=== PATIENT | male | born 1940 | race Caucasian/White ===

== ENCOUNTER 2018-03-11 14:44 | Emergency (ER) | payer MEDICARE, OTHER ==
[~2018-03-11] VITALS: Ht 180.3 cm; Wt 85.3 kg
--- OUTSIDE RECORDS SUMMARY | ~2018-03-11 | XMS | Clinical Summary ---
Demographics + + + | Address | [address] | | | [place] [address] | + + + | Home Phone | | + + + | Preferred Language | Unknown | + + + | Marital Status | Single | + + + | Restoration Affiliation | 1076 | + + + | Race | Unknown | + + + | Ethnic Group | Unknown | + + + Author + + + | Author | [facility] | + + + | Organization | [facility] | + + + | Address | Unknown | + + + | Phone | Unavailable | + + + Support + + +---------+ + | Name | Relationship | Address | Phone | + + +---------+ + | Mariposa Sol | ECON | Unknown | | + + +---------+ + Care Team Providers + +------+ + | Care Operator Specialist Communications Name | Role | Phone | + +------+ + PP | Unavailable | + +------+ + Allergies Not on File Current Medications Not on file Active Problems Not on file Social History + +-------+ +--------+------+ | Tobacco [...] on file | | + + + Plan of Treatment Not on file Results Not on filefrom Last 3 Months Insurance + +--------+ +------+-------+ + | Payer | Benefi | Subscriber | Type | Phone | Address | | | t Plan | ID | | | | | | / | | | | | | | Group | | | | | + +--------+ +------+-------+ + | MEDICARE | MEDICA | [id number] | | | [address] | | | RE | | | | [place] [address] | | | IP-OP | | | | | + +--------+ +------+-------+ + + +--------+ +--------+ + + | Guarantor Name | Accoun | Relation to | Date | Phone | Billing Address | | | t Type | Patient | of | | | | | | | | | | + +--------+ +--------+ + + | SHAHNAZ WERNER | Person | Self [birth year] | Home: | [address] | | | al/Fam | | 1941 | [phone] | [place] [address] | | | [address]zaida | | | [address] | | + +--------+ +--------+ + +"
--- OUTSIDE RECORDS SUMMARY | ~2018-03-11 | XMS | Clinical Summary ---
Demographics + + + | Address | [address] | | | [place] [address] | + + + | Home Phone | | + + + | Preferred Language | Unknown | + + + | Marital Status | Single | + + + | Orthodox Affiliation | 1076 | + + + | Race | Unknown | + + + | Ethnic Group | Unknown | + + + Author + + + | Author | [facility] | + + + | Organization | [facility] | + + + | Address | Unknown | + + + | Phone | Unavailable | + + + Support + + +---------+ + | Name | Relationship | Address | Phone | + + +---------+ + | Mariposa Sol | ECON | Unknown | | + + +---------+ + Care Team Providers + +------+ + | Care Thread Laster Name | Role | Phone | + [...] +------+-------+ + | MEDICARE | MEDICA | [id number] | | | [address] | | | RE | | | | [place] [address] | | | IP-OP | | | [...] | | al/Fam | | 1941 | [phone] | [place] [address] | | | [address] | | | [address] | | + +--------+ +--------+ + +"
[~2018-03-11 14:44] MED LIST: ALLOPURINOL300 MG PO; AMLODIPINE BESYL5 MG PO; ASPIRIN EC325 MG PO; CLONIDINE HCL0.1 MG PO; INDOMETHACIN25 MG PO; INDOMETHACIN50 MG PO; LANTUS100 UNITS/ SUB-Q; LISINOPRIL10 MG; LISINOPRIL40 MG PO; METOPROLOL SUCC25 MG PO; METOPROLOL TAR100 MG PO; METOPROLOL TART50 MG PO; NORCO 5-325 TA1 EACH PO; NOVOLOG100 UNITS/ SUB-Q; OMEPRAZOLE20 MG PO; ONDANSETRON ODT8 MG PO; OXYCODONE HCL5 M1 PO; PERCOCET 5-3251 EACH PO; VIAGRA100 MG PO; VITAMIN D-32000 UNIT PO; ZOFRAN8 MG PO
== END 2018-03-11 18:00 | disposition home or self-care (01) ==
LOC: ED 14:44
DX: R04.0 Epistaxis (principal); I10 Essential (primary) hypertension; E11.40 Type 2 diabetes mellitus with diabetic neuropathy, unspecified; E78.5 Hyperlipidemia, unspecified; Z86.73 Personal history of transient ischemic attack (TIA), and cerebral infarction without residual deficits; Z88.0 Allergy status to penicillin; Z88.7 Allergy status to serum and vaccine; Z88.5 Allergy status to narcotic agent; Z88.8 Allergy status to other drugs, medicaments and biological substances; Z79.899 Other long term (current) drug therapy; Z79.82 Long term (current) use of aspirin; Z79.4 Long term (current) use of insulin
CPT/HCPCS: 99283

== ENCOUNTER 2018-03-13 00:38 | Emergency (ER) | payer MEDICARE, OTHER ==
[~2018-03-13] VITALS: Ht 180.3 cm; Wt 85.3 kg
--- OUTSIDE RECORDS SUMMARY | ~2018-03-13 | XMS | Clinical Summary ---
Demographics + + + | Address | [address] | | | [place] [address] | + + + | Home Phone | | + + + | Preferred Language | Unknown | + + + | Marital Status | Single | + + + | Temple Affiliation | 1076 | + + + | Race | Unknown | + + + | Ethnic Group | Unknown | + + + Author + + + | Author | [facility] | + + + | Organization | [facility] | + + + | Address | Unknown | + + + | Phone | Unavailable | + + + Support + + +---------+ + | Name | Relationship | Address | Phone | + + +---------+ + | Mariposa Sol | ECON | Unknown | | + + +---------+ + Care Team Providers + +------+ + | Care Peoplesoft Financials Consultant Name | Role | Phone | + [...] +------+-------+ + | MEDICARE | MEDICA | [id number] | | | [address] | | | RE | | | | [place] [address] | | | IP-OP | | | [...] | | al/Fam | | 1941 | [phone] | [place] [address] | | | [address] | | | [address] | | + +--------+ +--------+ + +"
--- OUTSIDE RECORDS SUMMARY | ~2018-03-13 | XMS | Clinical Summary ---
Demographics + + + | Address | [address] | | | [place] [address] | + + + | Home Phone | | + + + | Preferred Language | Unknown | + + + | Marital Status | Single | + + + | Gnosticism Affiliation | 1076 | + + + | Race | Unknown | + + + | Ethnic Group | Unknown | + + + Author + + + | Author | [facility] | + + + | Organization | [facility] | + + + | Address | Unknown | + + + | Phone | Unavailable | + + + Support + + +---------+ + | Name | Relationship | Address | Phone | + + +---------+ + | Mariposa Sol | ECON | Unknown | | + + +---------+ + Care Team Providers + +------+ + | Care Hay Buckler Name | Role | Phone | + [...] +------+-------+ + | MEDICARE | MEDICA | [id number] | | | [address] | | | RE | | | | [place] [address] | | | IP-OP | | | [...] | | al/Fam | | 1941 | [phone] | [place] [address] | | | [place] | | | [address] | | + +--------+ +--------+ + +"
--- OUTSIDE RECORDS SUMMARY | 2018-03-13 00:44 | XMS ---
PreManage Notification: SHAHNAZ KEVIN Security Tobacco Conditioner Events No recent Security Events currently on file CRITERIA MET - [facility] - 2 Visits in 30 Days CARE PROVIDERS Black Rosario MD Primary Care Current PHONE: Unknown orleticia Case or Mill [employer] Current PHONE: Unknown [facility] Other [facility] PHONE: Unknown Flako has no Care Guidelines for this patient. E.D. VISIT COUNT (12 MO.) 2 [facility] TOTAL 2 NOTE: Visits indicate total known visits. ED/UCC VISIT TRACKING (12 MO.) 03/13/2018 00:39 [facility] [place] TYPE: Emergency COMPLAINT: - NOSE BLEED 03/11/2018 14:44 [facility] [place] TYPE: Emergency COMPLAINT: - NOSE BLEED INPATIENT VISIT TRACKING (12 MO.) No inpatient visits to display in this time frame [id number]
[2018-03-13] MEDS ORDERED: KEFLEX500 MG PO (03:57)
== END 2018-03-13 04:46 | disposition home or self-care (01) ==
LOC: ED 00:38
PROC: 2Y41X5Z Packing of Nasal Region using Packing Material (ICD-10-PCS; principal; 2018-03-13)
DX: R04.0 Epistaxis (principal); E11.42 Type 2 diabetes mellitus with diabetic polyneuropathy; E78.5 Hyperlipidemia, unspecified; I10 Essential (primary) hypertension; Z88.0 Allergy status to penicillin; Z88.7 Allergy status to serum and vaccine; Z88.5 Allergy status to narcotic agent; Z88.8 Allergy status to other drugs, medicaments and biological substances; Z79.899 Other long term (current) drug therapy; Z79.82 Long term (current) use of aspirin; Z79.4 Long term (current) use of insulin
CPT/HCPCS: 30903; 99283

== ENCOUNTER 2018-03-14 05:32 | Emergency (ER) | payer MEDICARE, OTHER ==
[~2018-03-14] VITALS: Ht 180.3 cm; Wt 85.3 kg
--- OUTSIDE RECORDS SUMMARY | ~2018-03-14 | XMS | Clinical Summary ---
Demographics + + + | Address | [address] | | | [place] [address] | + + + | Home Phone | | + + + | Preferred Language | Unknown | + + + | Marital Status | Single | + + + | Yazidi Affiliation | 1076 | + + + | Race | Unknown | + + + | Ethnic Group | Unknown | + + + Author + + + | Author | [facility] | + + + | Organization | [facility] | + + + | Address | Unknown | + + + | Phone | Unavailable | + + + Support + + +---------+ + | Name | Relationship | Address | Phone | + + +---------+ + | Mariposa Sol | ECON | Unknown | | + + +---------+ + Care Team Providers + +------+ + | Care Forensic Specialist Name | Role | Phone | + [...] +------+-------+ + | MEDICARE | MEDICA | [id number] | | | [address] | | | RE | | | | [place] [address] | | | IP-OP | | | [...] | | al/Fam | | 1941 | [phone] | [place] [address] | | | [address] | | | [address] | | + +--------+ +--------+ + +"
--- OUTSIDE RECORDS SUMMARY | ~2018-03-14 | XMS | Clinical Summary ---
Demographics + + + | Address | [address] | | | [place] [address] | + + + | Home Phone [...] + + + | Author | [facility] | + + + | Organization | [facility] | + + + | Address | Unknown | + + + | Phone | Unavailable | + + + Support + + +---------+ + | Name | Relationship | Address | Phone | + + +---------+ + | Mariposa Sol | ECON | Unknown | | + + +---------+ + Care Team Providers + +------+ + | Care Electronic Tech Name | Role | Phone | + [...] +------+-------+ + | MEDICARE | MEDICA | [id number] | | | [address] | | | RE | | | | [place] [address] | | | IP-OP | | | | | + +--------+ +------+-------+ + + +--------+ +--------+ + + | Guarantor Name | Accoun | Relation to | Date | Phone | Billing Address | | | t Type | Patient | of | | | | | | | | | | + +--------+ +--------+ + + | SHAHANZ WERNER | Person | Self | [birth year] | Home: | [address] | | | al/Fam | | 1941 | [phone] | [place] [address] | | | [address] | | | [address] | | + +--------+ +--------+ + +"
[~2018-03-14 05:32] MED LIST changes: +KEFLEX500 MG PO
--- OUTSIDE RECORDS SUMMARY | 2018-03-14 05:36 | XMS ---
PreManage Notification: SHAHNAZ KEVIN Security Welder Production Line Arc Events No recent Security Events currently on file CRITERIA MET - Group Notification - [facility] - 2 Visits in 30 Days CARE PROVIDERS Black Rosario MD Primary Care Current PHONE: Unknown orleticia Case or Director Embalmer Current PHONE: Unknown [facility] Other [facility] PHONE: Unknown Flako has no Care Guidelines for this patient. Care History Medical/Surgical 03/13/2018 [facility] HAS CALLED PATIENT 3X WITH NO RESPONSE AND NO VOICEMAIL IS SET UP. - PLEASE REFER PATIENT TO [facility] TO ESTABLISH WITH A PROVIDER. - PLEASE HAVE PATIENT CALL [phone] TO HELP SET UP PCP FOR PATIENT. - PATIENT HAS NOT BEEN SEEN IN THE WALK IN CLINIC SINCE 2013. - ALL NON EMERGENT MEDICAL NEEDS, PLEASE REFER TO WALK IN CLINIC. [place] VISIT COUNT (12 MO.) 3 [facility] TOTAL 3 NOTE: Visits indicate total known visits. ED/UCC VISIT TRACKING (12 MO.) 03/14/2018 05:33 [facility] [place] TYPE: Emergency COMPLAINT: - NOSE BLEED 03/13/2018 00:39 [facility] [place] TYPE: Emergency COMPLAINT: - NOSE BLEED 03/11/2018 14:44 [facility] [place] TYPE: Emergency COMPLAINT: - NOSE BLEED INPATIENT VISIT TRACKING (12 MO.) No inpatient visits to display in this time frame [id number]
[2018-03-15] MEDS ORDERED: NORCO 5-325 TA1 EACH PO (03:54)
[2018-03-15] MEDS ORDERED: ATIVAN1 MG PO (04:34)
[2018-03-15] MEDS ORDERED: ZOFRAN ODT4 MG SL (04:34)
[2018-03-15] MEDS ORDERED: FUROSEMIDE20 MG PO (10:43)
[2018-03-15] MEDS ORDERED: OMEPRAZOLE40 MG PO (10:43)
[2018-03-15] MEDS ORDERED: HUMALOG100 UNITS/ SUB-Q (11:17)
== END 2018-03-14 07:48 | disposition home or self-care (01) ==
LOC: ED 05:32
DX: R04.0 Epistaxis (principal); I10 Essential (primary) hypertension; E11.40 Type 2 diabetes mellitus with diabetic neuropathy, unspecified; Z79.4 Long term (current) use of insulin; Z79.899 Other long term (current) drug therapy; Z88.0 Allergy status to penicillin; Z88.7 Allergy status to serum and vaccine; Z88.5 Allergy status to narcotic agent; Z88.8 Allergy status to other drugs, medicaments and biological substances
CPT/HCPCS: 99283

== ENCOUNTER 2018-03-15 03:43 | Observation (INO) | payer MEDICARE, OTHER ==
[~2018-03-15] VITALS: Ht 180.3 cm; Wt 83.0 kg
--- OUTSIDE RECORDS SUMMARY | ~2018-03-15 | XMS | Clinical Summary ---
Demographics + + + | Address | [address] | | | [place] [address] | + + + | Home Phone | | + + + | Preferred Language | Unknown | + + + | Marital Status | Single | + + + | Uatsdin Affiliation | 1076 | + + + | Race | Unknown | + + + | Ethnic Group | Unknown | + + + Author + + + | Author | [facility] | + + + | Organization | [facility] | + + + | Address | Unknown | + + + | Phone | Unavailable | + + + Support + + +---------+ + | Name | Relationship | Address | Phone | + + +---------+ + | Mariposa Sol | ECON | Unknown | | + + +---------+ + Care Team Providers + +------+ + | Care Fisher Name | Role | Phone | + [...] +------+-------+ + | MEDICARE | MEDICA | [id number] | | | [address] | | | RE | | | | [place] [address] | | | IP-OP | | | [...] | | al/Fam | | 1941 | [phone] | [place] [address] | | | [address] | | | [address] | | + +--------+ +--------+ + +"
--- OUTSIDE RECORDS SUMMARY | ~2018-03-15 | XMS | Clinical Summary ---
Demographics + + + | Address | [address] | | | [place] [address] | + + + | Home Phone | | + + + | Preferred Language | Unknown | + + + | Marital Status | Single | + + + | Presybeterian Affiliation | 1076 | + + + | Race | Unknown | + + + | Ethnic Group | Unknown | + + + Author + + + | Author | [facility] | + + + | Organization | [facility] | + + + | Address | Unknown | + + + | Phone | Unavailable | + + + Support + + +---------+ + | Name | Relationship | Address | Phone | + + +---------+ + | Mariposa Sol | ECON | Unknown | | + + +---------+ + Care Team Providers + +------+ + | Care Sand System Operator Name | Role | Phone | [...] +------+-------+ + | MEDICARE | MEDICA | [id number] | | | [address] | | | RE | | | | [place] [address] | | | IP-OP | | | [...] | | al/Fam | | 1941 | [phone] | [place] [address] | | | [address] | | | [address] | | + +--------+ +--------+ + +"
--- OUTSIDE RECORDS SUMMARY | ~2018-03-15 | XMS | Clinical Summary ---
Demographics + + + | Address | [address] | | | [place] [address] | + + + | Home Phone [...] + + + | Author | [facility] | + + + | Organization | [facility] | + + + | Address | Unknown | + + + | Phone | Unavailable | + + + Support + + +---------+ + | Name | Relationship | Address | Phone | + + +---------+ + | Mariposa Sol | ECON | Unknown | | + + +---------+ + Care Team Providers + +------+ + | Care Cloth Covered Helmet Puller Name | Role | Phone | + [...] +------+-------+ + | MEDICARE | MEDICA | [id number] | | | [address] | | | RE | | | | [place] [address] | | | IP-OP | | | [...] | | al/Fam | | 1941 | [phone] | [place] [address] | | | [address] | | | [address] | | + +--------+ +--------+ + +"
--- OUTSIDE RECORDS SUMMARY | 2018-03-15 03:48 | XMS ---
PreManage Notification: SHAHNAZ KEVIN Security Front Office Administrator Events No recent Security Events currently on file CRITERIA MET - Group Notification - [facility] - 2 Visits in 30 Days CARE PROVIDERS [facility] Other [facility] PHONE: Unknown Flako has no Care Guidelines for this patient. Care History Medical/Surgical 03/14/2018 [facility] - PATIENT REFERRED TO DR BRIGETTE LANCE ON 03/14/18 PER ER PHYSICIAN NOTATION. - PLEASE HAVE PATIENT FOLLOW UP WITH DR BRIGETTE LANCE IF SEEN IN THE ED. 03/13/2018 [facility] HAS CALLED PATIENT 3X WITH NO RESPONSE AND NO VOICEMAIL IS SET UP. - PLEASE REFER PATIENT TO [facility] TO ESTABLISH WITH A PROVIDER. - PLEASE HAVE PATIENT CALL [phone] TO HELP SET UP PCP FOR PATIENT. - PATIENT HAS NOT BEEN SEEN IN THE WALK IN CLINIC SINCE 2013. - ALL NON EMERGENT MEDICAL NEEDS, PLEASE REFER TO WALK IN CLINIC. E.D. VISIT COUNT (12 MO.) 4 [facility] TOTAL 4 NOTE: Visits indicate total known visits. ED/UCC VISIT TRACKING (12 MO.) 03/15/2018 03:44 [facility] [place] TYPE: Emergency COMPLAINT: - NOSE BLEED 03/14/2018 05:33 [facility] [place] TYPE: Emergency COMPLAINT: - NOSE BLEED 03/13/2018 00:39 [facility] [place] TYPE: Emergency COMPLAINT: - NOSE BLEED 03/11/2018 14:44 [facility] [place] TYPE: Emergency COMPLAINT: - NOSE BLEED DIAGNOSES: - Allergy status to narcotic agent status - Allergy status to penicillin - ferry terminal agent (current) use of insulin - Hyperlipidemia, unspecified - Other snf (current) drug therapy - Type 2 diabetes mellitus with diabetic neuropathy, unspecified - Epistaxis - Allergy status to other drugs, medicaments and biological substances status - Personal history of transient ischemic attack (TIA), and cerebral infarction without residual deficits - ferry terminal agent (current) use of aspirin - Essential (primary) hypertension - Allergy status to serum and vaccine status INPATIENT VISIT TRACKING (12 MO.) No inpatient visits to display in this time frame [id number]
[2018-03-15] MEDS ORDERED: NORCO 5-325 TA1 EACH PO (03:54)
[2018-03-15] MEDS ORDERED: ZOFRAN ODT4 MG SL (04:34)
[2018-03-15] MEDS ORDERED: ATIVAN1 MG PO (04:34)
[2018-03-15] MEDS ORDERED: OMEPRAZOLE40 MG PO (10:43)
[2018-03-15] MEDS ORDERED: FUROSEMIDE20 MG PO (10:43)
--- NOTE | 2018-03-15 10:54 | NUR ---
ROUNDED WITH DR LOPEZ. PT IN BED WITH LIANG PACKING IN LEFT NARE. SOME LEAKING FROM DRESSING. NEW ORDERS RECIEVED.
[2018-03-15] MEDS ORDERED: HUMALOG100 UNITS/ SUB-Q (11:17)
--- NOTE | 2018-03-15 12:28 | NUR ---
MED REC COMPLETE WITH TIFFANIE MEDICATION REFILL HISTORY AND PATIENT INTERVIEW.
--- NOTE | 2018-03-15 12:51 | NUR ---
REPORTING PAIN IN UPPER MOUTH. PRN PAIN MEDICATION GIVEN. LEAKING APPEARS TO HAVE STOPPED. CALL LIGHT IN REACH. 100% LUNCH ATE.
--- NOTE | 2018-03-15 14:10 | NUR ---
PATIENT RESTING IN BED. PATIENT COMPLAINS ABOUT PAIN IN MOUTH AND TONGUE. PATIENT RATES HIS PAIN A 4 OUT OF 10. PATIENT ASKS FOR PAIN MEDICINE. RN NOTIFIED. VITALS AND I&O DONE. CALL LIGHT WITHIN REACH. NO OTHER NEEDS AT THIS TIME.
--- NOTE | 2018-03-15 14:38 | NUR ---
PT COMPLAING OF 4/10 PAIN IM MOUTH AND TONGUE. DE NPAIN MEDICATION GIVEN. DENIES FURTHER NEEDS. PACKING IN NARE SECURE.SMALL AMOUNT LEAKING BUT MOSTLY BLEADING UNDER CONTROL.
--- NOTE | 2018-03-15 16:03 | NUR ---
CALL LIGHT ANSWERED. RED BLOOD LEAKING FROM LEFT NARE. GAUZE APPLIED AND PRESSURE HELD FOR 5 MINUTES. BLEEDING STOPED. PT EDUCATED ON NOT COUGHING AND NOT DOING THINGS TO INCREASE PRESSURE IN NOSE. PAIN MEDICATION GIVEN PER ORDER. GOWN AND BLANKETS CHANGED. DENIES FUTHER NEEDS.
--- NOTE | 2018-03-15 17:37 | NUR ---
REPORTING 4/10 PAIN. PRN PAIN MEDICAITION GIVEN.
--- NOTE | 2018-03-15 18:09 | NUR ---
PT ADMITTED TODAY FOR OBSERVATION. 1 EPISODE OF BLEEDING THROUGH PRESSURE DRESSING IN NOSE. FENTYNOL IV FOR PAIN Q1 HR. PLATELETS TO BE GIVEN WHEN READY.
--- NOTE | 2018-03-15 19:51 | NUR ---
TURNED OFF PT'S LIGHTS PER HIS REQUEST. HE NEEDS NOTHING ELSE AT THIS TIME.
--- NOTE | 2018-03-15 20:00 | NUR ---
FINISHED GETTING EVENING REPORT AND INTRODUCED MYSELF TO PATIENT. AWAITING FOR PLATELETS TO ARRIVE FROM [facility] FOR TRANSFUSION. PATIENT AWAITING PATIENTLY.
--- NOTE | 2018-03-15 21:40 | NUR ---
VITALS AND I&OS DONE AND CHARTED. URINAL EMPTIED. NOTIFIED RN LEAH OF HIGH PULSE. PT NEEDS NOTHING ELSE AT THIS TIME.
--- NOTE | 2018-03-15 22:45 | NUR ---
PRE-TRANSFUSION START VITALS 2200. PLATELETS STARTED TRANSFUSING AT 2215. 2230 VS ESSENTIALLY THE SAME AND TRANSFUSION FINISHED AT 2245 AND VS STILL ESSENTIALLY THE SAME. NO TRANSFUSION REATION NOTED.
--- NOTE | 2018-03-15 23:45 | NUR ---
VS REMAIN STABLE AND PATIENT RESTING QUIETLY ON HIS 3L/OXY MASK.
--- NOTE | 2018-03-16 02:43 | NUR ---
PATIENT STILL DOING WELL. VS STABLE AND PATIENT WAS ABLE TO GET SOME SLEEP WITH 1MG IV ATIVAN AND 25MCG FENTANYL.
--- NOTE | 2018-03-16 04:38 | NUR ---
PATIENT STILL RESTING QUIETLY ON 3L/OXYMASK. RESPIRATIONS REGULAR AND EVEN. EYES CLOSED.
--- NOTE | 2018-03-16 06:28 | NUR ---
AFTER PATIENT RECEIVED HIS PLATELETS AND ATIVAN AND FENTANYL HE SEEMED TO SLEEP PRETTY WELL THE REST OF THE NIGHT. PATIENT STILL CONTINUES TO REST QUIETLY, EYES CLOSED, LIANG IN PLACE IN LEFT NARE, AND ON 3L/OXYMASK.
--- NOTE | 2018-03-16 07:20 | NUR ---
REPORT RECEIVED FROM MIRYAM LYNN. PT AWAKE AND SITTING UPRIGHT IN BED WITHFOLEY IN NARE. SMALL AMT OF BLOODY DRAINAGE LEAKING OUT OF NARE. PT DOES NOT FEEL IT IS GOING DOWN HIS THROAT. DID NOT GET MUCH SLEEP BUT FEELS HE WAS ABLE TO GET SOME AFTER PAIN MEDS LAST NIGHT.
--- NOTE | 2018-03-16 08:25 | NUR ---
patient in bed, blood sugar taken by REYNOLD Mondragon, breakfast brought in
--- NOTE | 2018-03-16 09:11 | NUR ---
PT GIVEN PAIN MEDS AND ATIVAN FOR ANXIETY AND PAIN 4\10 MOSTLY IN THROAT. PT NOSE SEEMS TO HAVE STOPPED OOZING AND IS CRUSTY AROUND NARE. DENIES FEELING IT DOWN HIS THROAT. LUNGS CLEAR.
--- NOTE | 2018-03-16 12:56 | NUR ---
GAVE PT POPSICLE FOR SORE THROAT. NOSE STILL CRUSTED ON DISTAL EDGE, NO LEAKING NOTED.
--- NOTE | 2018-03-16 16:44 | NUR ---
PT APPEARS TO BE RESTING COMFORTABLY WITH EYES CLOSED.
--- NOTE | 2018-03-16 18:03 | NUR ---
PT SLEPT OFF AND ON THROUGHOUT DAY. PT RATES PAIN IN HEAD AND THROAT MOSTLY 4/10. GIVEN IV FENTYL AND PO ATIVAN X2. INSULIN GIVEN X1. FULL LIQ DIET. BEDREST, USES URINAL. PLAN TO LEAVE LIANG IN NARE FOR ANOTHER COUPLE DAYS. 1 UNIT PLATELETS GIVEN YESTERDAY.
--- NOTE | 2018-03-16 18:10 | NUR ---
pt is resting in bed safely with call light in reach. pt did not need anything at the moment
--- NOTE | 2018-03-16 20:00 | NUR ---
PATIENT RESTING QUIETLY IN BED ON HIS LEFT SIDE. 3L/OXYMASK ON AND LIANG STILL INFLATED AND PLACED IN THE LEFT NARE. PATIENT'S EYES CLOSED, RESPIRATIONS REGULAR AND EVEN. PATIENT MOUTH BREATHING AND RESPIRATIONS 16-18 A MINUTE. I WILL NOT AWAKEN HIM AT THIS TIME.
--- NOTE | 2018-03-16 22:00 | NUR ---
PATIENT HAS A MAGALLANES 5 AND HAS HAD 25MCG FENTANYL AND 1 MG OF ATIVAN AND IS STARTING TO FEEL BETTER. PM ASSESSMENT DONE. LUNGS CLEAR AND BOWEL TONES ACTIVE. ALL PM MEDS GIVEN. PATIENT READY TO GO TO SLEEP.
--- NOTE | 2018-03-16 22:41 | NUR ---
charge nurse rounding note: resting, eyes closed, pt pulled iv earlier, unable to restart iv placment. Primary RN notified Dr Donato, new orders received. call light and fluids at bedside, no request
--- NOTE | 2018-03-17 00:10 | NUR ---
PATIENT CONTINUES TO REST QUIETLY ON HIS LEFT SIDE. EYES CLOSED, RESPIRATIONS ARE REGULAR AND EVEN.
--- NOTE | 2018-03-17 02:00 | NUR ---
PATIENT RESTING QUIETLY STILL, RESPIRATIONS EVEN AND REGULAR, EYES CLOSED.
--- NOTE | 2018-03-17 04:08 | NUR ---
PATIENT BACK ASLEEP AFTER GETTING ANOTHER 25MCG OF IV FENTANYL FOR MAGALLANES OF 11/25. RESPIRATIONS EVEN AND REGULAR.
--- NOTE | 2018-03-17 06:33 | NUR ---
PATIENT HAD GOOD A NIGHT i THINK HE COULD HAVE. NO MORE BL;EEDDING FROM THE LEFT NARE WITH THE LIANG CATH STILL INFLATED IN IT. 1 MG OF ATIVAN AND 25MCG OF FENTANYL HELPED HIM SLEP THE FIRST PART OF THE NIGHT, BUT HE NEEDED ANOTHER DOSE OF FENTANYL TOWARDS MORNINNG FROM THE PRESSURE AND DISCOMFORT OF 6/10 IN HIS NARE AND HEAD CAUSED BY THE LIANG. BEEN SLEEPING WITH 3L/OXY MASK AND SATS ARE FINE ARE HIS OTHER VS AND HE HAS BEEN ABLE TO USE THE URINAL WELL.
--- NOTE | 2018-03-17 07:45 | NUR ---
anniet was asleep, i was able to wake him up i got his blood sugar, reported to the nurse, he is currently eating his breakfast
--- NOTE | 2018-03-17 08:42 | NUR ---
PT IN BED ASLEEP UPON ENTERING ROOM. AWOKE EASILY TO VOICE. LIANG CATH NOTED IN PLACE IN LEFT NARE. SOME OLD DRIED BLOOD NOTED, BUT NO NEW BLEEDING. PT REPORTING 6/10 PAIN OF HEAD AND THROAT. MEDICATED WITH IV FENATNYL. PT ATE 100% OF FULL LIQUID BREAKFAST, TOPHER WELL. PT USING URINAL TO VOID. ALERT AND ORIENTED. ASSESSMENT COMPLETED. CALL LIGHT WITHIN REACH.
--- NOTE | 2018-03-17 12:35 | NUR ---
PT ASLEEP UPON ENTERING ROOM. AWOKE EASILY TO VOICE. PT ATE 100% OF LUNCH, TOPHER WELL. DENIES NEEDS OR CONCERNS AT THIS TIME. NO NEW DRAINAGE NOTED FROM NASAL CATH. CALL LIGHT WITHIN REACH.
--- NOTE | 2018-03-17 14:30 | NUR ---
PT COMPLAINED OF 6/10 CHEST PAIN WITHOUT PRESSURE. VS BP 126/59, HR 64, RESP 16, TEMP 99 ORALLY, O2 SAT 98% ON 3L OXY MASK. NOTIFIED DR. LOPEZ. Dylon.T. CALLED AND EKG COMPLETED. PT DENIES SOB OR OTHER CONCERNS.
--- NOTE | 2018-03-17 14:39 | NUR ---
pateint was in bed, complained of chest pain, alerted nurse and ekg was done, took vital signs
--- NOTE | 2018-03-17 16:36 | NUR ---
PT REPORTS THAT CHEST PAIN IS RESOLVED AT THIS TIME.
--- NOTE | 2018-03-17 18:20 | NUR ---
PT ATE 100% OF DINNER. RESTING IN BED WATCHING TV. DENIES NEEDS OR CONCERNS AT THIS TIME. CALL LIGHT WITHIN REACH.
--- NOTE | 2018-03-17 19:05 | NUR ---
BEDSIDE REPORT RECEIVED FROM OFFGOING RN. PT RESTING IN BED WITH EYES CLOSED, CALL LIGHT WITHIN REACH.
--- NOTE | 2018-03-17 20:39 | NUR ---
PT ASSESSMENT COMPLETE. PT RATING PAIN TO HEAD AND THROAT /10. PRN FENTANYL ADMINISTERED. PT DENIES NAUSEA AND SOB AT THIS TIME. OXY MASK IN PLACE, O2 @ 3LPM, SAO2 97%. LUNG SOUNDS CLEAR AT THIS TIME. LIANG CATH TO L NARES IN PLACE. SLIGHT AMOUNT OF RED DRAINAGE PRESENT. SCRATCHES PRESENT TO BILATERAL ANKLES. PT STATES HE IS NOT SURE HOW THEY GOT THERE. PT DENIES FURTHER NEEDS AT THIS TIME. URINAL EMPTIED AND RETURNED TO BED SIDE. CALL LIGHT WITHIN PT REACH ARE PERSONAL ITEMS.
--- NOTE | 2018-03-17 21:30 | NUR ---
PT CONTINUES TO RATE PAIN 6/10. PRN FENTANYL ADMINISTERED. PT DENIES OTHER NEEDS AT THIS TIME. CALL LIGHT WITHIN REACH.
--- NOTE | 2018-03-18 00:47 | NUR ---
PT UTILIZIES CALL LIGHT, CONTINUES TO REPORT 6/10 PAIN TO HEAD AND THROAT. PRN ATIVAN AND FENTANYL ADMINISTERED. PT DENIES FURTHER NEEDS, CALL LIGHT AND PERSON ITEMS WITHIN REACH.
--- NOTE | 2018-03-18 01:29 | NUR ---
PT RESTING IN BED WITH EYES OPEN. HE STATES THAT PAIN CONTINUES, HAS NOT BEEN ABLE TO FALL ASLEEP YET. PT DENIES NEEDS AT THIS TIME. CALL LIGHT WITHIN REACH.
--- NOTE | 2018-03-18 02:02 | NUR ---
PT ASSESSMENT COMPLETE. PT LYING IN BED AWAKE. PT REPORTS THAT PAIN IS UNRESOLVED AT THIS TIME. LIANG CATH TO L NARE REMAINS IN PLACE. OXY MASK PRESENT, O2 @ 3LPM. PT DENIES NEEDS AT THIS TIME. CHLORASEPTIC SPRAY AT BEDSIDE. CALL LIGHT AND PERSONAL ITEMS WITHIN REACH.
--- NOTE | 2018-03-18 04:30 | NUR ---
PT RESTING IN BED ON HIS L SIDE. RESPIRATIONS EVEN AND UNLABORED. NO S/SX OF DISTRESS NOTED. PT APPEARS TO BE SLEEPING. PT DOES NOT WAKE WHILE STAPLE SHEAR OPERATOR IN ROOM. CALL LIGHT WITHIN REACH.
--- NOTE | 2018-03-18 05:20 | NUR ---
PT AWAKE HALF OF NIGHT. FENTANYL X 3, LORAZEPAM X 1. LIANG CATH TO L NARE, SLIGHT AMOUNT OF SANGUINEOUS DRAINAGE WHEN PT WIPES HIS NOSE. BROWN CRUSTY SCAB AROUND L NARE. PT REPORTS HEADACHE AND SORE THROAT. CHLORASEPTIC SPRAY AT PT'S BEDSIDE. OXYMASK, O2@ 3LPM. IV SL. URINAL AT BEDSIDE, UO QS. SBA. DR. LAGUNAS CALLED 03/17/2018, REQUESTS SUPPLIES AT BEDSIDE, PRESENT.
--- NOTE | 2018-03-18 08:45 | NUR ---
DR LAGUNAS IN TO SEE PT AND PACKING REMOVED FROM L NARE, NO FURTHER BLEEDING NOTED. INSTRUCTED TO KEEP COTTONBALL WITH BACITRACIN IN NARE FOR ANOTHER 24HRS. PT REQUESTING PAIN MEDICATION. FENTANYL 25MCG GIVEN. HOB UP 45DEG. CALL LIGHT IN EASY REACH.
[2018-03-18] MEDS ORDERED: NORCO 5-325 TA1 EACH PO (09:07)
--- NOTE | 2018-03-18 09:07 | NUR ---
PT STATES HE IS COMFORTABLE, NO BLEEDING. DR WATERS IN TO SEE PT.
--- NOTE | 2018-03-18 10:30 | NUR ---
PT IS AWAKE, ASSISTED WITH GETTING UP AND GETTING DRESSED. DENIES BEING DIZZY. TAKING FLUIDS WELL. STATES MAGALLANES IS MUCH IMPROVED SINCE PACKING REMOVED EARLIER. KEEPING COTTONBALL IN L NARE INSTRUCTED.NO BLEEDING. WATCHING TV.
--- NOTE | 2018-03-18 10:58 | NUR ---
PATIENT ALL DRESSED AND READY TO GO. RN IN ROOM. CALL LIGHT IN REACH. NO FURTHER NEEDS AT THIS TIME.
--- NOTE | 2018-03-18 18:23 | EKG ---
[facility] [address] [facility] [place], [place] [address] Signed Sinus rhythm with 1st degree AV block Otherwise normal ECG Confirmed by ROSHAN LOPEZ MD ([id number]) on 03/18/2018 6:23:50 PM Electronically Signed By: ROSHAN LOPEZ MD 03/18/18 1823 PATIENT NAME: SHAHNAZ KEVIN Electrocardiogram DATE OF : 40 PHYSICIAN: ROSHAN LOPEZ MD REPORT #: [id number] REPORT IS CONFIDENTIAL AND NOT TO BE RELEASED WITHOUT AUTHORIZATION
== END 2018-03-18 11:30 | disposition home or self-care (01) ==
LOC: ED 03:43 → MS 03:45
PROVIDERS: ADMIT Internal Medicine
DX: R04.0 Epistaxis (principal); D69.1 Qualitative platelet defects; R07.9 Chest pain, unspecified; E78.5 Hyperlipidemia, unspecified; E11.42 Type 2 diabetes mellitus with diabetic polyneuropathy; N40.0 Benign prostatic hyperplasia without lower urinary tract symptoms; I10 Essential (primary) hypertension; M10.9 Gout, unspecified; N52.9 Male erectile dysfunction, unspecified; R09.89 Other specified symptoms and signs involving the circulatory and respiratory systems; Z87.19 Personal history of other diseases of the digestive system; Z23 Encounter for immunization; Z85.828 Personal history of other malignant neoplasm of skin; Z86.73 Personal history of transient ischemic attack (TIA), and cerebral infarction without residual deficits; Z79.82 Long term (current) use of aspirin; Z79.4 Long term (current) use of insulin; Z79.891 Long term (current) use of opiate analgesic; Z79.899 Other long term (current) drug therapy; Z88.5 Allergy status to narcotic agent; Z88.0 Allergy status to penicillin; Z88.7 Allergy status to serum and vaccine; Z88.8 Allergy status to other drugs, medicaments and biological substances
CPT/HCPCS: 36415; 36430; 80048; 80053; 85025; 85610; 85730; 86850; 86900; 86901; 93005; 93010; 96374; 96375; 96376; 99284; G0008; G0378; J1815; J2405; J3010; J7030; P9035

== ENCOUNTER 2019-05-02 01:46 | Emergency (ER) | payer MEDICARE, OTHER ==
[~2019-05-02] VITALS: Ht 180.3 cm; Wt 83.0 kg
--- OUTSIDE RECORDS SUMMARY | ~2019-05-02 | XMS | Clinical Summary ---
Demographics + + + | Address | [address] | | | [place] [address] | + + + | Home Phone | | + + + | Preferred Language | Unknown | + + + | Marital Status | Single | + + + | Caodaism Affiliation | 1076 | + + + | Race | Unknown | + + + | Ethnic Group | Unknown | + + + Author + + + | Author | [facility] | | | and [place] | + + + | Organization | [facility] | | | and [place] [...] Team Providers + +------+ + | Care Bicycle Repair Technician Name | Role | Phone | + [...]
--- OUTSIDE RECORDS SUMMARY | ~2019-05-02 | XMS | Clinical Summary ---
Demographics + + + | Address | [address] | | | [place] [address] | + + + | Home Phone | | + + + | Preferred Language | Unknown | + + + | Marital Status | Single | + + + | Voodoo Affiliation | 1076 | + + + | Race | Unknown | + + + | Ethnic Group | Unknown | + + + Author + + + | Author | [facility] (Historical as of | | | 02-01-19) | + + + | Organization | [facility] (Historical as of | | | 02-01-19) [...] Team Providers + +------+ + | Care Griddle Cook Name | Role | Phone | + [...] +------+-------+ + | MEDICARE | MEDICA | [id number] | | | [address] | | | RE | | | | [place] [address] | | | IP-OP | | | [...] | 1941 | [phone] | [place] [address] | | | [place] | | | [address]100 | | + +--------+ +--------+ + +"
--- OUTSIDE RECORDS SUMMARY | ~2019-05-02 | XMS | Encounter Summary ---
Demographics + + + | Address | [address] | | | [place] [address] | + + + | Home Phone | | + + + | Preferred Language | Unknown | + + + | Marital Status | Single | + + + | Synagogue Affiliation | 1076 | + + + | Race | Unknown | + + + | Ethnic Group | Unknown | + + + Author + + + | Author | [facility] | | | and [place] | + + + | Organization | [facility] | | | and [place] [...] Team Providers + +------+ + | Care Taxicab Coordinator Name | Role | Phone | + +------+ + PCP | Unavailable | + +------+ + Encounter Details +--------+ + + + + | Date | Type | Department | Care Team | Description | +--------+ + + + + | 08/05/ | Hospital | [facility] | Dung Borjas | ABNORM | | 2001 | Encounter | [facility] [place] | [address] | ELECTROCARDIOGRAM | | | | CLINICAL DECISION | [place] | | | | | [address] | [place] [address] | | | | | [place], [place] | [phone] | | | | | [address] | | | | | | [phone] | | | +--------+ + + + [...]
[~2019-05-02 01:46] MED LIST changes: +ATIVAN1 MG PO; +FUROSEMIDE20 MG PO; +HUMALOG100 UNITS/ SUB-Q; +OMEPRAZOLE40 MG PO; +ZOFRAN ODT4 MG SL
--- OUTSIDE RECORDS SUMMARY | 2019-05-02 01:48 | XMS ---
PreManage Notification: SHAHNAZ KEVIN Security Pile Driver Events No recent Security Events currently on file CRITERIA MET - [facility] - Has Care Guidelines CARE PROVIDERS NOE MOY Family Medicine 05/10/2018-Current PHONE: [phone] [facility] PHONE: Unknown Flako has no Care Guidelines for this patient. Care History Medical/Surgical 05/10/2018 [facility] - Patient is currently established with [facility]. If patient is seen in the ED during business hours. Please contact CHWs at [facility]. Care Recommendation: This patient has had 5 or more Emergency Department visits in the last 12 months.\T\nbsp; Patient requires education on the scope and purpose of the ED as an acute care provider not a Primary Care Provider and should not be utilized for chronic conditions.\T\nbsp; These are guidelines and the provider should exercise clinical judgment when providing care. 03/14/2018 [facility] - PATIENT REFERRED TO DR BRIGETTE LANCE ON 03/14/18 PER ER PHYSICIAN NOTATION. - PLEASE HAVE PATIENT FOLLOW UP WITH DR BRIGETTE LANCE IF SEEN IN THE ED. 03/13/2018 [facility] - W HAS CALLED PATIENT 3X WITH NO RESPONSE AND NO VOICEMAIL IS SET UP. - PLEASE REFER PATIENT TO [facility] TO ESTABLISH WITH A PROVIDER. - PLEASE HAVE PATIENT CALL [phone] TO HELP SET UP PCP FOR PATIENT. - PATIENT HAS NOT BEEN SEEN IN THE WALK IN CLINIC SINCE 2013. - ALL NON EMERGENT MEDICAL NEEDS, PLEASE REFER TO WALK IN CLINIC. E.D. VISIT COUNT (12 [address] [facility] NOTE: Visits indicate total known visits. ED/UCC VISIT TRACKING (12 MO.) 05/02/2019 01:47 [facility] [place] TYPE: Emergency COMPLAINT: - NOSE BLEED 05/09/2018 04:14 [facility] [place] TYPE: Emergency COMPLAINT: - BLOOD PRESSURE PROBLEM DIAGNOSES: - Allergy status to oth drug/meds/biol subst status - Palpitations - 1 Type 2 diabetes mellitus without complications - Allergy status to narcotic agent status - watermelon inspector (current) use of insulin - Allergy status to serum and vaccine status - Other fci (current) drug therapy - Allergy status to penicillin - Essential (primary) hypertension INPATIENT VISIT TRACKING (12 MO.) No inpatient visits to display in this time frame [email or web address]
[2019-05-02] MEDS ORDERED: ALLOPURINOL300 MG PO (02:00)
[2019-05-02] MEDS ORDERED: NORVASC10 MG PO (02:01)
[2019-05-02] MEDS ORDERED: VITAMIN D2000 UNIT PO (02:03)
[2019-05-02] MEDS ORDERED: LANTUS100 UNITS/ SUB-Q ×2 (02:03→02:04)
[2019-05-02] MEDS ORDERED: ASPIR-LOW81 MG PO (02:03)
== END 2019-05-02 03:26 | disposition home or self-care (01) ==
LOC: ED 01:46
PROC: 093K7ZZ Control Bleeding in Nasal Mucosa and Soft Tissue, Via Natural or Artificial Opening (ICD-10-PCS; principal; 2019-05-02)
DX: R04.0 Epistaxis (principal); I10 Essential (primary) hypertension; E11.40 Type 2 diabetes mellitus with diabetic neuropathy, unspecified; E78.5 Hyperlipidemia, unspecified; N40.0 Benign prostatic hyperplasia without lower urinary tract symptoms; Z86.73 Personal history of transient ischemic attack (TIA), and cerebral infarction without residual deficits; Z88.0 Allergy status to penicillin; Z88.7 Allergy status to serum and vaccine; Z88.5 Allergy status to narcotic agent; Z88.8 Allergy status to other drugs, medicaments and biological substances; Z79.899 Other long term (current) drug therapy; Z79.82 Long term (current) use of aspirin; Z79.4 Long term (current) use of insulin
CPT/HCPCS: 30903; 99283-25

== ENCOUNTER 2019-05-03 03:51 | Emergency (ER) | payer MEDICARE, OTHER ==
[~2019-05-03] VITALS: Ht 180.3 cm; Wt 83.0 kg
--- OUTSIDE RECORDS SUMMARY | ~2019-05-03 | XMS | Encounter Summary ---
Demographics + + + | Address | [address] | | | [place] [address] | + + + | Home Phone | | + + + | Preferred Language | Unknown | + + + | Marital Status | Single | + + + | Bahai Affiliation | 1076 | + + + | Race | Unknown | + + + | Ethnic Group | Unknown | + + + Author + + + | Author | [facility] | | | and [place] | + + + | Organization | [facility] | | | and [place] | + + + | Address | Unknown | + + + | Phone | Unavailable | + + + Support + + +---------+ + | Name | Relationship | Address | Phone | + + +---------+ + | Mariposa Sol | ECON | Unknown | | + + +---------+ + Care Team Providers + +------+ + | Care Cell Room Supervisor Name | Role | Phone | + +------+ + PCP | Unavailable | + +------+ + Encounter Details +--------+ + + + + | Date | Type | Department | Care Team | Description | +--------+ + + + + | 08/05/ | Hospital | [facility] | Dung Borjas | ABNORM | | 2001 | Encounter | [facility]ICAL [place] | [address] | ELECTROCARDIOGRAM | | | | CLINICAL DECISION | [place] | | | | | [address] | [place] [address] | | | | | [place], [place] | [phone] | | | | | [address] | | | | | | [phone] | | | +--------+ + + + + Social History + +-------+ +--------+------+ | Tobacco Use | Types | Packs/Day | Years | Date | | | | | Used | | + +-------+ +--------+------+ | Never Assessed | | | | | + +-------+ +--------+------+ + + + | Sex Assigned at | Date Recorded | | | | + + + | Not on file | | + + + + + + + | Job Start Date | Occupation | Industry | + + + + | Not on file | Not on file | Not on file | + + + + + + + + | Travel History | Travel Start | Travel End | + + + + + + | No recent travel history available. | + + documented as of this encounter Plan of Treatment Not on filedocumented as of this encounter Visit Diagnoses + + | Diagnosis | + + | Nonspecific abnormal electrocardiogram (ECG) (EKG) | + + documented in this encounter"
--- OUTSIDE RECORDS SUMMARY | ~2019-05-03 | XMS | Encounter Summary ---
Demographics + + + | Address | [address] | | | [place] [address] | + + + | Home Phone | | + + + | Preferred Language | Unknown | + + + | Marital Status | Single | + + + | Tenriism Affiliation | 1076 | + + + | Race | Unknown | + + + | Ethnic Group | Unknown | + + + Author + + + | Author | [facility] | | | and [place] | + + + | Organization | [facility] | | | and [place] | [...] Team Providers + +------+ + | Care Client Support Professional Name | Role | Phone | + +------+ + PCP | Unavailable | + +------+ + Encounter Details +--------+ + + + + | Date | Type | Department | Care Team | Description | +--------+ + + + + | 08/05/ | Hospital | [facility] | Dung Borjas | ABNORM | | 2001 | Encounter | [place] [place] | [address] | ELECTROCARDIOGRAM | | | | CLINICAL DECISION | [place] | | | | | [address] | [place] [address] | | | | | [place], [place] | [phone] | | | | | [address] | | | | | | [phone] | | | +--------+ + + + [...]
--- OUTSIDE RECORDS SUMMARY | ~2019-05-03 | XMS | Clinical Summary ---
Demographics + + + | Address | [address] | | | [place] [address] | + + + | Home Phone | | + + + | Preferred Language | Unknown | + + + | Marital Status | Single | + + + | Gnosticist Affiliation | 1076 | + + + | Race | Unknown | + + + | Ethnic Group | Unknown | + + + Author + + + | Author | [facility] | | | and [place] | + + + | Organization | [facility] | | | and [place] | [...] Team Providers + +------+ + | Care Resource Room Special Education Teacher Name | Role | Phone | + +------+ + PCP | Unavailable | + +------+ + Allergies Not on File Medications Not on file Active Problems Not [...] recent travel history available. | + + Last Filed Vital Signs Not on file Plan of Treatment + + + + + | Health Maintenance | Due Date | Last Done | Comments | + + + + + | Vaccine: | | | | | Dtap/Tdap/Td (1 - | 0 | | | | Tdap) | | | | + + + + + | Vaccine: Zoster (1 | | | | | of 2) | 1 | | | + + + + + | Vaccine: | | | | | Pneumococcal 65+ (1 | 6 | | | | of 2 - PCV13) | | | | + + + + + | Vaccine: Influenza | | | | | (#1) | 9 | | | + + + + + Results Not on filefrom Last 3 Months"
--- OUTSIDE RECORDS SUMMARY | ~2019-05-03 | XMS | Clinical Summary ---
Demographics + + + | Address | [address] | | | [place] [address] | + + + | Home Phone | | + + + | Preferred Language | Unknown | + + + | Marital Status | Single | + + + | Worship Affiliation | 1076 | + + + | Race | Unknown | + + + | Ethnic Group | Unknown | + + + Author + + + | Author | [facility] | | | and [place] | + + + | Organization | [facility] | | | and [place] [...] Team Providers + +------+ + | Care Oyster Preparer Name | Role | Phone | + [...]
--- OUTSIDE RECORDS SUMMARY | ~2019-05-03 | XMS | Clinical Summary ---
Demographics + + + | Address | [address] | | | [place] [address] | + + + | Home Phone | | + + + | Preferred Language | Unknown | + + + | Marital Status | Single | + + + | Lutheran Affiliation | 1076 | + + + | Race | Unknown | + + + | Ethnic Group | Unknown | + + + Author + + + | Author | [facility] (Historical as of | | | 02-01-19) | + + + | Organization | [facility] (Historical as of | | | 02-01-19) [...] Team Providers + +------+ + | Care Chief Compliance Officer Name | Role | Phone | + [...] +------+-------+ + | MEDICARE | MEDICA | [id number] | | | [address] | | | RE | | | | [place] [address] | | | IP-OP | | | [...] | 1941 | [phone] | [place] [address] | | | [place] | | | [address] | | + +--------+ +--------+ + +"
--- OUTSIDE RECORDS SUMMARY | ~2019-05-03 | XMS | Clinical Summary ---
Demographics + + + | Address | [address] | | | [place] [address] | + + + | Home Phone | | + + + | Preferred Language | Unknown | + + + | Marital Status | Single | + + + | Nondenominational Affiliation | 1076 | + + + | Race | Unknown | + + + | Ethnic Group | Unknown | + + + Author + + + | Author | [facility] (Historical as of | | | 02-01-19) | + + + | Organization | [facility] (Historical as of | | | 02-01-19) [...] Team Providers + +------+ + | Care Lunch Counter Manager Name | Role | Phone | + [...] +------+-------+ + | MEDICARE | MEDICA | [id number] | | | [address] | | | RE | | | | [place] [address] | | | IP-OP | | | [...] | 1941 | [phone] | [place] [address] | | | [place] | | | [address] | | + +--------+ +--------+ + +"
[~2019-05-03 03:51] MED LIST changes: +ASPIR-LOW81 MG PO; +NORVASC10 MG PO; +VITAMIN D2000 UNIT PO
--- OUTSIDE RECORDS SUMMARY | 2019-05-03 03:54 | XMS ---
PreManage Notification: SHAHNAZ KEVIN Security Autism Motor Specialist Events No recent Security Events currently on file CRITERIA MET - [facility] - Has Care Guidelines - [facility] - 2 Visits in 30 Days CARE PROVIDERS NOE MOY [facility] 05/10/2018-Current PHONE: [phone] [facility] PHONE: Unknown Flako has no Care Guidelines for this patient. Care History Medical/Surgical 05/02/2019 [facility] - PATIENT HAS A MACHINE TENDER SPECIALIST DR MACHUCA IN [place]- [phone]. 05/10/2018 [facility] - Patient is currently established with [facility]. If patient is seen in the ED during business hours. Please contact CHWs at [facility]. Care Recommendation: This patient has had 5 or more Emergency Department visits in the last 12 months.\T\nbsp; Patient requires education on the scope and purpose of the ED as an acute care provider not a Primary Care Provider and should not be utilized for chronic conditions.\T\nbsp; These are guidelines and the provider should exercise clinical judgment when providing care. 03/14/2018 [facility] - PATIENT REFERRED TO DR BRIGETTE LANCE ON 03/14/18 PER ER PHYSICIAN NOTATION. - PLEASE HAVE PATIENT FOLLOW UP WITH DR BRIGETTE LANCE IF SEEN IN THE ED. [place] VISIT COUNT (12 MO.) 3 [facility] TOTAL 3 NOTE: Visits indicate total known visits. ED/UCC VISIT TRACKING (12 MO.) 05/03/2019 03:52 [facility] [place] TYPE: Emergency COMPLAINT: - NOSEBLEED/NON INJURY 05/02/2019 01:47 [facility] [place] TYPE: Emergency COMPLAINT: - NOSE BLEED 05/09/2018 04:14 [facility] [place] TYPE: Emergency COMPLAINT: - BLOOD PRESSURE PROBLEM DIAGNOSES: - Allergy status to oth drug/meds/biol subst status - Palpitations - 1 Type 2 diabetes mellitus without complications - Allergy status to narcotic agent status - nursing home (current) use of insulin - Allergy status to serum and vaccine status - Other detention (current) drug therapy - Allergy status to penicillin - Essential (primary) hypertension INPATIENT VISIT TRACKING (12 MO.) No inpatient visits to display in this time frame [id number]
== END 2019-05-03 05:59 | disposition home or self-care (01) ==
LOC: ED 03:51
PROC: 093K7ZZ Control Bleeding in Nasal Mucosa and Soft Tissue, Via Natural or Artificial Opening (ICD-10-PCS; principal; 2019-05-03)
DX: R04.0 Epistaxis (principal); E11.9 Type 2 diabetes mellitus without complications; E78.5 Hyperlipidemia, unspecified; Z86.73 Personal history of transient ischemic attack (TIA), and cerebral infarction without residual deficits; I10 Essential (primary) hypertension; Z88.0 Allergy status to penicillin; Z88.7 Allergy status to serum and vaccine; Z88.5 Allergy status to narcotic agent; Z88.8 Allergy status to other drugs, medicaments and biological substances; Z79.899 Other long term (current) drug therapy; Z79.82 Long term (current) use of aspirin; Z79.4 Long term (current) use of insulin
CPT/HCPCS: 30903; 99283-25

== ENCOUNTER 2019-05-04 06:08 | Emergency (ER) | payer MEDICARE, OTHER ==
[~2019-05-04] VITALS: Ht 180.3 cm; Wt 83.0 kg
--- OUTSIDE RECORDS SUMMARY | ~2019-05-04 | XMS | Encounter Summary ---
Demographics + + + | Address | [address] | | | [place] [address] | + + + | Home Phone | | + + + | Preferred Language | Unknown | + + + | Marital Status | Single | + + + | Mandaeism Affiliation | 1076 | + + + | Race | Unknown | + + + | Ethnic Group | Unknown | + + + Author + + + | Author | [facility] | | | and [place] | + + + | Organization | [facility] | | | and [place] [...] Team Providers + +------+ + | Care Circular Head Saw Operator Name | Role | Phone | + +------+ + PCP | Unavailable | + +------+ + Encounter Details +--------+ + + + + | Date | Type | Department | Care Team | Description | +--------+ + + + + | 08/05/ | Hospital | [facility] | Dung Borjas | ABNORM | | 2001 | Encounter | [place] | [address] | ELECTROCARDIOGRAM | | | | CLINICAL DECISION | [address] | | | | | [address] | [place] [address] | | | | | [place], [place] | [phone] | | | | | [address] | | | | | | [phone] | | | +--------+ + + + [...]
--- OUTSIDE RECORDS SUMMARY | ~2019-05-04 | XMS | Clinical Summary ---
Demographics + + + | Address | [address] | | | [place] [address] | + + + | Home Phone | | + + + | Preferred Language | Unknown | + + + | Marital Status | Single | + + + | Adventism Affiliation | 1076 | + + + | Race | Unknown | + + + | Ethnic Group | Unknown | + + + Author + + + | Author | [facility] | | | and [place] | + + + | Organization | [facility] | | | and [place] [...] Team Providers + +------+ + | Care Search Optimization Analyst Name | Role | Phone | + [...]
--- OUTSIDE RECORDS SUMMARY | ~2019-05-04 | XMS | Encounter Summary ---
Demographics + + + | Address | [address] | | | [place] [address] | + + + | Home Phone | | + + + | Preferred Language | Unknown | + + + | Marital Status | Single | + + + | Confucianist Affiliation | 1076 | + + + | Race | Unknown | + + + | Ethnic Group | Unknown | + + + Author + + + | Author | [facility] | | | and [place] | + + + | Organization | [facility] | | | and [place] [...] Team Providers + +------+ + | Care Convention Worker Name | Role | Phone | + +------+ + PCP | Unavailable | + +------+ + Encounter Details +--------+ + + + + | Date | Type | Department | Care Team | Description | +--------+ + + + + | 08/05/ | Hospital | [facility] | Dung Borjas | ABNORM | | 2001 | Encounter | MEDICAL [place] | [address] | ELECTROCARDIOGRAM | | | | CLINICAL DECISION | [address] [place] | | | | | [address] | [place] [address] | | | | | [place], [place] | [phone] | | | | | [address] | | | | | | [phone] | | | +--------+ + + + [...]
--- OUTSIDE RECORDS SUMMARY | ~2019-05-04 | XMS | Clinical Summary ---
Demographics + + + | Address | [address] | | | [place] [address] | + + + | Home Phone | | + + + | Preferred Language | Unknown | + + + | Marital Status | Single | + + + | Gnosticist Affiliation | 1076 | + + + | Race | Unknown | + + + | Ethnic Group | Unknown | + + + Author + + + | Author | [facility] (Historical as of | | | 02-01-19) | + + + | Organization | [facility] (Historical as of | | | 02-01-19) | + + + | Address | Unknown | + + + | Phone | Unavailable | + + + Support + + +---------+ + | Name | Relationship | Address | Phone | + + +---------+ + | Mariposa Sol | ECON | Unknown | | + + +---------+ + Care Team Providers + +------+ + | Care Motor Coach Tour Operator Name | Role | Phone | [...] +------+-------+ + | MEDICARE | MEDICA | [id number] | | | [address] | | | RE | | | | [place] [address] | | | IP-OP | | | | | + +--------+ +------+-------+ + + +--------+ +--------+ + + | Guarantor Name | Accoun | Relation to | Date | Phone | Billing Address | | | t Type | Patient | of | | | | | | | | | | + +--------+ +--------+ + + | SHHANAZ WERNER | Person | Self [birth year] Home: | [address] | | | [place] | | 1941 | [phone] | [place] [address] | | | [place] | | | [address] | | + +--------+ +--------+ + +"
--- OUTSIDE RECORDS SUMMARY | ~2019-05-04 | XMS | Clinical Summary ---
Demographics + + + | Address | [address] | | | [place] [address] | + + + | Home Phone | | + + + | Preferred Language | Unknown | + + + | Marital Status | Single | + + + | Gnosticism Affiliation | 1076 | + + + | Race | Unknown | + + + | Ethnic Group | Unknown | + + + Author + + + | Author | [facility] (Historical as of | | | 02-01-19) | + + + | Organization | [facility] (Historical as of | | | 02-01-19) [...] Team Providers + +------+ + | Care Attending Urologist Name | Role | Phone | + [...] +------+-------+ + | MEDICARE | MEDICA | [id number] | | | [address] | | | RE | | | | [place] [address] | | | IP-OP | | | [...] | 1941 | [phone] | [place] [address] | | | [place] | | | [address] | | + +--------+ +--------+ + +"
--- OUTSIDE RECORDS SUMMARY | ~2019-05-04 | XMS | Clinical Summary ---
Demographics + + + | Address | [address] | | | [place] [address] | + + + | Home Phone | | + + + | Preferred Language | Unknown | + + + | Marital Status | Single | + + + | Adventist Affiliation | [id number] | + + + | Race | Unknown | + + + | Ethnic Group | Unknown | + + + Author + + + | Author | [facility] | | | and [place] | + + + | Organization | [facility] | | | and [...] Team Providers + +------+ + | Care Mortising Machine Operator Name | Role | Phone | [...]
--- OUTSIDE RECORDS SUMMARY | 2019-05-04 06:10 | XMS ---
PreManage Notification: SHAHNAZ KEVIN Security Shredder Operator Events No recent Security Events currently on file CRITERIA MET - [facility] - Has Care Guidelines - [facility] - 2 Visits in 30 Days CARE PROVIDERS NOE MOY [facility] 05/10/2018-Current PHONE: [phone] [facility] PHONE: Unknown Flako has no Care Guidelines for this patient. Care History Medical/Surgical 05/02/2019 [facility] - PATIENT HAS A DIRECTOR ACCOUNT MANAGEMENT SPECIALIST DR [place] IN [place]- [phone]. 05/10/2018 [facility] - Patient is currently established with [facility]. If patient is seen in the ED during business hours. Please contact CHWs at [facility]. Care Recommendation: This patient has had 5 or more Emergency Department visits in the last 12 months.\T\nbsp; Patient requires education on the scope and purpose of the ED as an acute care provider not a Primary Care Provider and should not be utilized for chronic conditions.\T\nbsp; These are guidelines and the provider should exercise clinical judgment when providing care. 03/14/2018 [facility] - PATIENT REFERRED TO DR BRIGETTE LANCE ON 03/14/18 PER ER PHYSICIAN NOTATION. - PLEASE HAVE PATIENT FOLLOW UP WITH DR BRIGETTE LANCE IF SEEN IN THE ED. [place] VISIT COUNT (12 MO.) 4 [facility] TOTAL 4 NOTE: Visits indicate total known visits. ED/UCC VISIT TRACKING (12 MO.) [facility] COMPLAINT: - BLOODY NOSE 05/03/2019 03:52 [facility] [place] TYPE: Emergency COMPLAINT: - NOSEBLEED/NON INJURY 05/02/2019 01:47 [facility] [place] TYPE: Emergency COMPLAINT: - NOSE BLEED 05/09/2018 04:14 [facility] [place] TYPE: Emergency COMPLAINT: - BLOOD PRESSURE PROBLEM DIAGNOSES: - Allergy status to oth drug/meds/biol subst status - Palpitations - 1 Type 2 diabetes mellitus without complications - Allergy status to narcotic agent status - skilled nursing (current) use of insulin - Allergy status to serum and vaccine status - Other half-way (current) drug therapy - Allergy status to penicillin - Essential (primary) hypertension INPATIENT VISIT TRACKING (12 MO.) No inpatient visits to display in this time frame [id number]
== END 2019-05-04 09:56 | disposition home or self-care (01) ==
LOC: ED 06:08
DX: R04.0 Epistaxis (principal); E11.42 Type 2 diabetes mellitus with diabetic polyneuropathy; E78.5 Hyperlipidemia, unspecified; Z86.73 Personal history of transient ischemic attack (TIA), and cerebral infarction without residual deficits; I10 Essential (primary) hypertension; Z88.0 Allergy status to penicillin; Z88.7 Allergy status to serum and vaccine; Z88.5 Allergy status to narcotic agent; Z79.899 Other long term (current) drug therapy; Z79.82 Long term (current) use of aspirin; Z79.4 Long term (current) use of insulin
CPT/HCPCS: 85025; 99283